=== PATIENT | female | born 1970 | race Caucasian/White ===

== ENCOUNTER 2017-01-08 09:37 | Outpatient (CLI) | payer OTHER | END 2017-01-08 09:38 | LOC: D.MAMMO 09:37 | DX: Z12.31 Encounter for screening mammogram for malignant neoplasm of breast (principal) ==

== ENCOUNTER → 2018-01-20 23:43 | Outpatient (CLI) | payer OTHER | END | disposition home or self-care (01) | LOC: D.MAMMO 09:00 | DX: Z12.31 Encounter for screening mammogram for malignant neoplasm of breast (principal) ==

== ENCOUNTER → 2018-03-12 18:05 | Outpatient (CLI) | payer OTHER | END | disposition home or self-care (01) | LOC: D.MAMMO 09:00 | DX: R92.8 Other abnormal and inconclusive findings on diagnostic imaging of breast (principal) ==

== ENCOUNTER → 2018-08-26 21:07 | Outpatient (CLI) | payer BC | END | disposition home or self-care (01) | LOC: D.MAMMO 09:00 | DX: R92.8 Other abnormal and inconclusive findings on diagnostic imaging of breast (principal) ==

== ENCOUNTER 2020-02-08 19:00 | Outpatient (CLI) | payer BC | END 2020-02-08 23:59 | disposition home or self-care (01) | LOC: D.MAMMO 19:00 | PROVIDERS: ATTEND Family Medicine | DX: Z12.31 Encounter for screening mammogram for malignant neoplasm of breast (principal) ==